=== PATIENT | female | born 1985 | race Asian ===

== ENCOUNTER 2016-12-09 05:30 | Inpatient (IN) | payer OTHER ==
--- NOTE | 2016-12-09 08:25 | PDOC.LDHP ---
Labor and Delivery H&P Chief complaint: scheduled induction HPI: 31yo at [id number] by LMP here for elective IOL. Current gestational age (weeks): 39 Due date: 12/14/16 Dating criteria: last menstrual period Grav: 3 Para: 2 Current complications: none Abnormal US findings: No Past Medical History: denies Current medications: pre- vitamins Previous surgical history: none Allergies/Adverse Reactions: Allergies Allergy/AdvReac Type Severity Reaction Status Date / Time No Known Allergies Allergy Verified 12/09/16 09:57 Social history: none - Physical Exam Vital signs reviewed and normal: yes General: NAD Heart: RRR Lungs: CTAB Abdomen: gravid Extremeties: no edema FHT: category 1 [place] contractions every: none - Vaginal Exam cm dilated: 5 Effacement: 90% Station: -2 (arom clear) - OB Labs Blood type: O RH: positive HIV: negative RPR: negative HEPSAg: negative 1 hour GCT: negative GBS: negative Additional Labs: RubImm - Assessment L&D Assessment: elective induction at term - Plan Plan: admit to L&D, labor augmentation if indicated, informed consent obtained
[2016-12-09] MEDS ORDERED: LR 500 ML/Oxytocin 10 units 500 ML ONE (09:22)
[2016-12-09] MEDS ORDERED: Carboprost 250 MCG/ML AMP IM PRN (09:25)
[2016-12-09] MEDS ORDERED: Misoprostol 200 MCG TAB PR PRN (09:25)
[2016-12-09] MEDS ORDERED: LR 500 ML/Oxytocin 10 units 500 ML IV SCH (09:25)
[2016-12-09] MEDS ORDERED: Lidocaine 1% (PF) 30 ML VIAL SC PRN (09:25)
[2016-12-09] MEDS ORDERED: LR / Pitocin 40 units/1000 ml 1,000 ML IV PRN (09:25)
[2016-12-09] MEDS ORDERED: Ibuprofen 800 MG TAB PO PRN (09:25)
[2016-12-09] MEDS ORDERED: Acetaminophen 500 MG TAB PO PRN (09:25)
[2016-12-09] MEDS ORDERED: Ondansetron HCl/PF 4 MG/2 ML Vial IVP PRN ×2 (09:25→11:21)
[2016-12-09] MEDS ORDERED: HYDROcodone/Acetaminophen 5/325 mg Tablet PO PRN ×3 (09:25→11:21)
[2016-12-09] MEDS ORDERED: Lactated Ringer's 1,000 ML IV SCH (09:25)
[2016-12-09] MEDS ORDERED: Diphenoxylate HCl/Atropine Tablet PO PRN (09:25)
[2016-12-09] MEDS ORDERED: Promethazine HCl 25 MG/ML VIAL IM PRN ×2 (09:25→11:21)
[2016-12-09 09:35] LABS: Hematocrit 35.6 % (36.0-47.0); Red Blood Cell (RBC) Count 4.01 mill/uL (4.20-5.40); White Blood Cell (WBC) Count 8.3 thou/uL (4.8-10.8)
[2016-12-09 10:15] VITALS: BMI 29.4
[2016-12-09] MEDS ORDERED: Lidocaine 1% (PF) 30 ML VIAL ONE (10:31)
--- NOTE | 2016-12-09 10:34 | PDOC.OPDEL ---
OB Operative/Delivery Note Delivery Dr/Surgeon: Laura Assist: Corinna [id number] Pre-Delivery Diagnosis: elective induction Procedure/Post Delivery Dx: spontaneous vaginal delivery Weeks gestation: 39 Anesthesia: local - Findings A Sex: male Weight: 7 lb 5 oz - 5 min: 9 - 10 min: 9 - Additional Findings/Plan Placenta delivered: spontaneous Repaired Obstetrical Laceration: 1st degree (and left periurethral, repaired with 3-0 vicryl for hemostasis after lidocaine infiltration) Estimated blood loss: 300 Post delivery plan: routine recovery
[2016-12-09] MEDS ORDERED: Lanolin Ointment 7 GM TUBE TOP PRN (11:21)
[2016-12-09] MEDS ORDERED: LR / Pitocin 40 units/1000 ml 1,000 ML IV SCH (11:21)
[2016-12-09] MEDS ORDERED: diphenhydrAMINE HCl 25 MG CAP PO PRN (11:21)
[2016-12-09] MEDS ORDERED: Preparation H Ointment 28 GM TUBE PR PRN (11:21)
[2016-12-09] MEDS ORDERED: Adacel (T-DAP) 0.5 ML VIAL IM ONE (11:21)
[2016-12-09] MEDS ORDERED: Benzocaine/Menthol 20-0.5% 60 ML CAN TOP PRN (11:21)
[2016-12-09] MEDS ORDERED: Bisacodyl 10 MG SUPP PR PRN (11:21)
[2016-12-09] MEDS ORDERED: Milk Of Magnesia 30 ML UDCUP PO PRN (11:21)
[2016-12-09] MEDS: Ibuprofen 800 MG TAB PO SCH ×2 (13:48→21:06)
[2016-12-09] MEDS: Ferrous Sulfate 325 MG TAB PO SCH (18:01)
[2016-12-09] MEDS: Docusate (Surfak) 240 MG CAP PO SCH (21:06)
[2016-12-10] MEDS: Ibuprofen 800 MG TAB PO SCH ×3 (05:50→21:07)
--- NOTE | 2016-12-10 08:35 | PDOC.PP ---
Post Progress Note Post Day #: 1 PO intake tolerated: yes Flatus: yes Ambulation: yes Vital Signs (12 hours) Temp Pulse Resp BP 12/10/16 08:18 97.7 F 79 20 117/77 12/10/16 04:50 98.2 F 75 16 93/59 L 12/09/16 23:10 98.0 F 66 18 118/57 L Weight Weight 161 lb - Physical Examination General: NAD Cardiovascular: RRR Respiratory: clear to ausculation bilateral Abdominal: no distention, appropriately TTP Fundus firm & at: umb Extremities: negative homans (B) Skin: no rash Neurological: no gross focal deficits Psychiatric: normal affect Result Diagrams: 12/09/16 07:42 Additional Labs: Post Labs Hep Bs Antigen Reactive S/CO (NonReactive) H 12/09/16 07:42 (1) Term of male Code(s): Z37.0 - SINGLE LIVE Status: Acute - Assessment/Plan VSSAF Doing well, Rh pos Rub Imm, Hbsag newly positive, will recheck and if positive do Hep B serologies Pain controlled Cont PP care
[2016-12-10] MEDS: Ferrous Sulfate 325 MG TAB PO SCH ×2 (09:25→15:41)
[2016-12-10] MEDS: Prenatal Vitamin 1 TAB PO SCH (10:00)
[2016-12-10] MEDS: Docusate (Surfak) 240 MG CAP PO SCH ×2 (10:01→21:07)
[2016-12-10] MEDS ORDERED: Sodium Chloride 0.9% 10 ML ONE (14:31)
[2016-12-10 21:28] VITALS: TEMP 98.5
[2016-12-11 05:15] LABS: Hepatitis A Total ABS Positive (Negative)
[2016-12-11] MEDS: Ibuprofen 800 MG TAB PO SCH ×2 (06:11→14:10)
[2016-12-11 08:07] VITALS: BP 115/68
[2016-12-11] MEDS: Prenatal Vitamin 1 TAB PO SCH (09:22)
[2016-12-11] MEDS: Docusate (Surfak) 240 MG CAP PO SCH (09:22)
[2016-12-11] MEDS: Ferrous Sulfate 325 MG TAB PO SCH ×2 (09:23→17:33)
--- NOTE | 2016-12-11 10:07 | PDOC.PP ---
Post Progress Note Post Day #: 2 -: doing well, not sure if baby dc today due to bili PO intake tolerated: yes Flatus: yes Ambulation: yes Vital Signs (12 hours) Temp Pulse Resp BP 12/11/16 08:20 98.5 F 62 20 12/11/16 08:07 98.5 F 62 20 115/68 Weight Weight 161 lb - Physical Examination General: NAD Respiratory: clear to ausculation bilateral Abdominal: lochia (normal), no distention Fundus firm & at: below umb Extremities: negative homans (B) Skin: no rash Neurological: no gross focal deficits Psychiatric: normal affect Result Diagrams: 12/09/16 07:42 Additional Labs: Post Labs Hep Bs Antigen Reactive S/CO (NonReactive) H 12/10/16 08:46 (1) Term of male Code(s): Z37.0 - SINGLE LIVE Status: Acute - Assessment/Plan PPD 2 doing well. DC home when baby DC, discussed poss bed and breakfast if baby stays for phototherapy.
[2016-12-11 11:06] LABS: ALT (SGPT) 8 U/L (8-55); AST (SGOT) 15 U/L (5-34); Alkaline Phosphatase 205 U/L (40-150); Anion Gap 10 mmol/L (10-20); BUN (Urea Nitrogen) 8 mg/dL (7.0-18.7); Bilirubin, Total 0.3 mg/dL (0.2-1.2); Calc. Creatinine Clearance 134 mL/min (70-130); Calcium 8.7 mg/dL (7.8-10.44); Carbon Dioxide 24 mmol/L (22-29); Chloride 108 mmol/L (98-107); Estimated GFR-MDRD Greater than 90; Globulin 3.4 g/dL (2.4-3.5); Protein, Total 6.3 g/dL (6.0-8.3)
[2016-12-12 14:27] LABS: HBV as IU/mL HBV DNA not detected IU/mL (.)
[2016-12-16 14:16] LABS: Hep B Surface AG-Rflx Sendout Negative (Negative); Hepatitis B Core Total Negative (Negative); Hepatitis B Surface AB-Sendout Reactive (.); Hepatitis B little e Antibody Negative (Negative); Hepatitis B little e Antigen Negative (Negative)
== END 2016-12-11 17:30 | disposition home or self-care (01) | DRG 775 ==
LOC: L&D 06:56 → 3SW 13:10
PROVIDERS: ADMIT Student in an Organized Health Care Education/Training Program; ATTEND Student in an Organized Health Care Education/Training Program
PROC: 10E0XZZ Delivery of Products of Conception, External Approach (ICD-10-PCS; principal; 2016-12-09)
PROC: 0HQ9XZZ Repair Perineum Skin, External Approach (ICD-10-PCS; 2016-12-09)
PROC: 10907ZC Drainage of Amniotic Fluid, Therapeutic from Products of Conception, Via Natural or Artificial Opening (ICD-10-PCS; 2016-12-09)
DX: O70.0 First degree perineal laceration during delivery (principal); Z37.0 Single live birth; Z3A.39 39 weeks gestation of pregnancy
CPT/HCPCS: 36415; 80053; 85027; 86704; 86705; 86706; 86707; 86708; 86780; 86803; 87340; 87350; 87517; 90715; A4216; J0595; J2001; J7120

== ENCOUNTER 2017-09-18 21:43 | Emergency (ER) | payer OTHER ==
[~2017-09-18 21:43] MED LIST: Iopamidol 370 76% 100 ML VIAL ONE
[2017-09-18 22:44] LABS: BHCG - Serum Negative (NEGATIVE); Pregs Control Background? CLEAR/WHITE (CLR/WHITE); Pregs Control Bar Appear? YES (CONTROL BAR)
[2017-09-18 22:48] LABS: Anion Gap 14 mmol/L (10-20); BUN (Urea Nitrogen) 16 mg/dL (7.0-18.7); Calc. Creatinine Clearance 0 mL/min (70-130); Calcium 9.7 mg/dL (7.8-10.44); Carbon Dioxide 23 mmol/L (22-29); Chloride 106 mmol/L (98-107); Estimated GFR-MDRD Greater than 90; Glucose 90 mg/dL (70-105); Potassium 4.2 mmol/L (3.5-5.1); Sodium 139 mmol/L (136-145)
[2017-09-18 22:53] LABS: Band 2 % (5-11); CKMB 2.6 ng/mL (0-6.6); Eosinophils 1 % (0-10); Hemoglobin 12.9 g/dL (12.0-16.0); Lymphocytes 38 % (21-51); MDiff Complete? YES; Mean Corpuscular HGB CONC 36.1 g/dL (32.0-36.0); Mean Corpuscular Hemoglobin 29.9 pg (27.0-31.0); Mean Corpuscular Volume 82.7 fL (78.0-98.0); Mean Platelet Volume 7.3 fL (7.4-10.4); Monocytes 3 % (0-10); Neutrophil 56 % (42-75); Platelet Count 285 thou/uL (130-400); RBC Distribution Width 10.7 % (11.5-14.5); Red Blood Cell (RBC) Count 4.32 mill/uL (4.20-5.40); Troponin I Less than 0.010 ng/mL (< 0.028); White Blood Cell (WBC) Count 8.4 thou/uL (4.8-10.8)
--- NOTE | 2017-09-18 23:19 | CT ---
CT ANGIO CHEST: 09/18/17 Multiple axial tomograms obtained through the chest following angio protocol with multiplanar reconst ruction and 3D postprocessing. INDICATIONS: Shortness of breath. Chest pain. Lower extremity swelling. FINDINGS: Pulmonary arteries show adequate opacification. No evidence of pulmonary embolus identified. The lung palomo are clear. No infiltrate seen. Mediastinum is unremarkable. Thoracic aorta is unremarkable. I mages through upper abdomen unremarkable. IMPRESSION: 1. No evidence of pulmonary embolus. 2. No acute lung process identified. POS: [facility]
== END 2017-09-18 23:35 | disposition home or self-care (01) ==
LOC: SCSER 21:43
DX: M54.6 Pain in thoracic spine (principal)
CPT/HCPCS: 71275; 80048; 82553; 83880; 84484; 84703; 85025; 85379; 93005

== ENCOUNTER 2020-01-14 07:27 | Outpatient (CLI) | payer OTHER ==
--- NOTE | 2020-01-14 08:19 | MRI ---
MRI LUMBAR SPINE NONCONTRAST: HISTORY: Low back pain. Back spasms. COMPARISON: None. FINDINGS: Appropriate T1 marrow signal intensity of the lumbar vertebra. Lumbar spine vertebral body heights ar e maintained. There is no fracture. No significant STIR hyperintensity to suggest vertebral body edema or ligamentous injury. Appropriate signal intensity of the visualized paraspinal muscles and solid organs. Conus medullaris terminates at the T12-L1 disc space. T12-L1:Adequate disc hydration. No posterior disc abnormality. No significant central canal stenosis or significant neural foraminal narrowing. L1-L2:Adequate disc hydration. No posterior disc abnormality. No significant central canal stenosis o r significant neural foraminal narrowing. L2-L3:Adequate disc hydration. No posterior disc abnormality. No significant central canal stenosis o r significant neural foraminal narrowing. L3-L4:Adequate disc hydration. No posterior disc abnormality. No significant central canal stenosis o r significant neural foraminal narrowing. L4-L5:Disc desiccation with mild loss of disc space height. Broad-based disc bulge with associated an nular fissure. Mild central canal stenosis. Mild bilateral foraminal narrowing due to disc material. There is a small amount of fluid in the left and right facet joints. Mild facet hypertrophy . L5-S1:Minimal disc desiccation without significant loss of disc space height. A central disc herniati on which contacts the ventral thecal sac. No significant stenosis. Mild bilateral foraminal narrowing predominantly due to disc material. There is mild bilateral facet hypertrophy with fluid in both facet joints. IMPRESSION: Degenerative disc disease at L4-L5 and L5-S1 as detailed above. Transcribed Date/Time: 01/14/2020 8:29 AM
== END 2020-01-14 07:28 | disposition home or self-care (01) ==
LOC: TBSIIMAG 07:27
PROVIDERS: ATTEND Family Medicine
DX: S33.5XXD Sprain of ligaments of lumbar spine, subsequent encounter (principal); M62.830 Muscle spasm of back; M51.36 Other intervertebral disc degeneration, lumbar region; M51.37 Other intervertebral disc degeneration, lumbosacral region
CPT/HCPCS: 72148

== ENCOUNTER 2022-06-17 08:41 | Outpatient (CLI) | payer BC | END 2022-06-17 08:42 | disposition home or self-care (01) | LOC: ULT 08:41 | PROVIDERS: ATTEND Nurse Practitioner Family | DX: M79.89 Other specified soft tissue disorders (principal) | CPT/HCPCS: 76999 ==